=== PATIENT | male | born 1985 | race Caucasian/White ===

== ENCOUNTER 2018-04-06 09:49 | Inpatient (IN) | payer MEDICAID, OTHER ==
--- NOTE | 2018-04-06 11:05 | EDPHY ---
General Time Seen by Provider: 04/06/18 10:06 Narrative: CHIEF COMPLAINT: M1, hallucinations HISTORY OF PRESENT ILLNESS: Patient arrives by EMS and is seen at time of arrival on an M1 hold due to hallucinations. He contacted 911 due to hallucinations and feeling concern for his safety. He says he has been awake for 2-3 days. He has been hearing voices that and telling him these going to tonight. He has felt very anxious from this. He says that he has not felt suicidal. He states that he gets monthly injections of Abilify for this but has not felt well over the past few days. No other associated complaints or modifying factors. PSYCHIATRIC DIAGNOSES: Bipolar disorder, schizophrenia PRIOR PSYCHIATRIC EVALUATIONS: Multiple. M1/DETAINER: [place] [employer] at time of arrival here REVIEW OF SYSTEMS: Ten systems reviewed and are negative unless otherwise noted in the HPI EXAMINATION General Appearance: Alert, no distress Head: normocephalic, atraumatic Eyes: Pupils equal and round, no conjunctival pallor or injection ENT, Mouth: Mucous membranes moist Neck: Normal inspection, supple, non-tender Respiratory: Lungs are clear to auscultation Cardiovascular: Regular rate and rhythm Gastrointestinal: Abdomen is soft and nontender Back: non-tender, no bony abnormalities Neurological: A&O, nonfocal, strength symmetric in all 4 limbs. Skin: Warm and dry, no amish. IV in the right AC. Extremities: Nontender, no pedal edema Psychiatric: Flat affect. Describes auditory hallucinations and paranoid delusions. DIFFERENTIAL DIAGNOSES: Including but not limited to schizophrenia, bipolar disorder, birgit, hypomania, auditory hallucinations, paranoid delusions, psychosis MDM: 10:05 a.m. M1 due to schizophrenia and bipolar disorder with auditory hallucinations with paranoid delusions. Patient denies suicidal ideation at this time. He is thus far cooperative. He reports Abilify monthly injections. Laboratory studies been drawn. Urinalysis will be obtained and proceed with medical clearance for evaluation. 11:20 a.m. Laboratory studies are unremarkable and he is medically cleared for evaluation at this time. 1:30 p.m. Notified by nurse. Patient has been accepted to [facility]. Accepting physician is Dr. Cespedes. Dr. Chen has completed the EMTALA form. SUPERVISION: Patient was independently examined, but I discussed the case with my secondary supervising physician Dr. Chen - Objective Vital Signs: Initial Vital Signs Temperature (C) 98.4 F 04/06/18 09:50 Heart Rate 58 L 04/06/18 09:50 Respiratory Rate 16 04/06/18 09:50 Blood Pressure 144/101 H 04/06/18 09:50 O2 Sat (%) 97 04/06/18 09:50 O2 Delivery Mode Room Air,Oxymizer Allergies/Adverse Reactions: acetaminophen [From Percocet] Allergy (Mild, Verified 04/06/18 10:20) oxycodone HCl [From Percocet] Allergy (Mild, Verified 04/06/18 10:20) Home Medications: Medication Instructions Recorded Non-Formulary 07/20/09 Rumson Carbonate 09/16/09 ZYPREXA 09/16/09 Rumson Carbonate 10/20/09 Abilify Unkn Amt 03/15/13 Cogentin Unk Amt 03/15/13 Klonipin Unkn Amt 03/15/13 Restoril Unkn Amt 03/15/13 Seroquel Unkn Amt 03/15/13 Laboratory Results: Laboratory Results 04/06/18 10:50 04/06/18 10:50 04/06/18 04/06/18 04/06/18 10:50 10:50 10:50 WBC 6.64 10^3/uL 10^3/uL (3.80-9.50) RBC 5.80 10^6/uL 10^6/uL (4.40-6.38) Hgb 17.3 g/dL g/dL (13.7-17.5) Hct 52.8 % H % (40.0-51.0) MCV 91.0 fL fL (81.5-99.8) MCH 29.8 pg pg (27.9-34.1) MCHC 32.8 g/dL g/dL (32.4-36.7) RDW 13.7 % % (11.5-15.2) Plt Count 186 10^3/uL 10^3/uL (150-400) MPV 11.8 fL H fL (8.7-11.7) Neut % (Auto) 71.3 % % (39.3-74.2) Lymph % (Auto) 22.1 % % (15.0-45.0) Tillman % (Auto) 5.9 % % (4.5-13.0) Eos % (Auto) 0.2 % L % (0.6-7.6) Baso % (Auto) 0.2 % L % (0.3-1.7) Nucleat RBC Rel Count 0.0 % % (0.0-0.2) Absolute Neuts (auto) 4.74 10^3/uL 10^3/uL (1.70-6.50) Absolute Lymphs (auto) 1.47 10^3/uL 10^3/uL (1.00-3.00) Absolute Monos (auto) 0.39 10^3/uL 10^3/uL (0.30-0.80) Absolute Eos (auto) 0.01 10^3/uL L 10^3/uL (0.03-0.40) Absolute Basos (auto) 0.01 10^3/uL L 10^3/uL (0.02-0.10) Absolute Nucleated RBC 0.00 10^3/uL 10^3/uL (0-0.01) Immature Gran % 0.3 % % (0.0-1.1) Immature Gran # 0.02 10^3/uL 10^3/uL (0.00-0.10) Sodium 144 mEq/L mEq/L (135-145) Potassium 4.4 mEq/L mEq/L (3.3-5.0) Chloride 107 mEq/L mEq/L (97-110) Carbon Dioxide 27 mEq/l mEq/l (22-31) Anion Gap 10 mEq/L mEq/L (8-16) BUN 9 mg/dL mg/dL (7-23) Creatinine 0.7 mg/dL mg/dL (0.7-1.3) Estimated GFR > 60 Glucose 90 mg/dL mg/dL (70-100) Calcium 10.4 mg/dL mg/dL (8.5-10.4) Urine Opiates Screen NEGATIVE (NEGATIVE) Urine Barbiturates NEGATIVE (NEGATIVE) Ur Phencyclidine Scrn NEGATIVE (NEGATIVE) Ur Amphetamine Screen NEGATIVE (NEGATIVE) U Benzodiazepines Scrn NEGATIVE (NEGATIVE) Urine Cocaine Screen NEGATIVE (NEGATIVE) U Marijuana (THC) Screen NEGATIVE (NEGATIVE) Ethyl Alcohol < 10 mg/dL mg/dL (0-10) Departure - Departure Disposition: [facility] IP Clinical Impression: Bipolar 1 disorder with moderate birgit Schizophrenia Qualifiers: Schizophrenia type: unspecified Qualified Code(s): F20.9 - Schizophrenia, unspecified Condition: Fair Referrals: Patient,NotPresent [Primary Care Provider] - As per Instructions
[2018-04-06 11:15] LABS: PLATELET COUNT 186 10^3/uL (150-400)
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
--- NOTE | 2018-04-06 13:59 | ASMTTCLDSP ---
TLC Discharge Disposition Disposition: Answers: Admit Disposition Notes: Notes: Admit 3[facility]. Discharge Concerns/Recommendations: Notes: In consultation with [facility] ED physician, Jaylen Chen MD and on-call psychiatrist, Tim Le MD, both concurred that pt appears to meet 27-65 criteria requiring psychiatric hospitalization as pt appears to be gravely disabled due to a mental illness condition. Was patient given the Answers: Yes Inpatient Behavioral Health Prohibited Belongings List while in the ED? For inpatient Tim Le MD admission, the following psychiatrist agreed to accept patient for admission to Behavioral Health ([facility]): Type of Hold: Answers: M1/72-hour Hold Hold initiated by: Answers: Police Date Signed: 04/06/2018 01:50 PM Electronically Signed By:Tamir Krause
[2018-04-06] MEDS ORDERED: ACETAMINOPHEN 325 MG TAB PO PRN (16:41)
[2018-04-06] MEDS ORDERED: LORazepam 0.5 MG TAB PO PRN (16:41)
[2018-04-06] MEDS ORDERED: OLANZapine DISINTEGR 10 MG TAB PO PRN (16:41)
[2018-04-06] MEDS ORDERED: NICOTINE POLACRILEX 2 MG GUM B PRN (16:41)
[2018-04-06] MEDS ORDERED: MAGNESIUM HYDROXIDE 30 ML UDCUP PO PRN (16:41)
[2018-04-06] MEDS ORDERED: MAG HYDROX/AL HYDROX/SIMETH 30 ML UDCUP PO PRN (16:41)
--- NOTE | 2018-04-07 09:16 | ASMTBHMTP ---
Master Treatment Plan Date: 04/07/2018 Diagnosis on Admission: SCHIZOAFFECTIVE DISORDER, DEPRESSIVE TYPE 295.70 (F25.1) Expected length of stay: 5-7 Reason for admission: Notes: Pt is a 32 year old male who presented to [facility] on a M1 hold by [employer]. Pt reported to police that his heart was pounding and he was trembling. Pt also reported that he was hearing voices that he was going to tonight. Pt reported that he has panic attacks every week and this has been going on for approx 1 year. Pt also reported that he has AH and that he hears, "instructions" telling him, "to have sex." When asked if he acts on these instructions, pt stated he does. When asked if these sexual encounters are consensual pt stated, " I don't remember." At this point pt stated, "I'm hungry," and then asked to stop the evaluation. Patient's stated presenting problems: Notes: "I had a panic attack and trouble sleeping". Patient's goals for treatment: Notes: "Be able to sleep at least 6 hours a night". Patient's strengths: Notes: "I'm a soothing person". Identify supports outside of hospital: Notes: "I don't have any support" Discharge criteria: Notes: Attend groups, sleep 6-8 hours, eat 3 meals a day. Initial disposition plan/considerations: Notes: Stabilize on medications. Master Treatment Plan Required Signatures Psychiatrist signature: Answers: Psychiatrist: RN on-shift signature: Answers: RN: Patient signature: Answers: Patient: Date Signed: 04/07/2018 09:15 AM Electronically Signed By:Carol Oliver
--- NOTE | 2018-04-07 13:53 | ASMTBHDC ---
Notes Note: Notes: CC and [employer] met with Christal riojas's [facility] therapist. Per Christal tristan. had been doing fairly well until yesterday. He has been using [facility] and can return there if they have a bed at the time of discharge. Christal reported that tristan. is on a halfway cert and court ordered meds. CC and [employer] requested a transfer of cert. Christal reported that tristan. has multiple stressors that resulted in increased anxiety. She reported that he is presenting fairly close to his baseline. Tristan. is on probation for an assault charge. Date Signed: 04/07/2018 01:52 PM Electronically Signed By:Carol Oliver
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
[2018-04-07] MEDS: ALBUTEROL 60 PUFFS/8 GM MDI IH SCH ×3 (15:53→23:58)
[2018-04-08] MEDS: ALBUTEROL 60 PUFFS/8 GM MDI IH SCH ×5 (03:15→20:24)
--- NOTE | 2018-04-08 08:15 | SOAPPROG ---
SOAP Progress Note Assessment/Plan: Assessment: Schizoaffective disorder, bipolar type. Improvement noted. (see subjective/ objective note). Patient is not safe to discharge at this time as patient continues to exhibit signs of depression, and express depression and anxiety symptoms. Patient requires continued inpatient care because of current depression, and requires inpatient level of care to stabilize. Patient could benefit from continued inpatient hospitalization for crisis stabilization, safety, and medication evaluation. Plan: (1) Psychotropic medications: After reviewing options, risks, and benefits patient agrees to continue current medications. No medication changes at this time as more time is needed to determine ongoing tolerability and efficacy. Plan is to continue to observe patient for response and side effects from medications, and ongoing monitoring and evaluation. (2) Review with patient informed consent and recommendations for psychotropic medication treatment listed below (3) Labs: no additional labs at this time (4) Therapy: continue milieu and group therapy (5) Further investigation including gathering information from patients relatives and review of past case records to inform treatment plan. (6) Safety/Wellness plan and follow-up outpatient appointments to be established prior to discharge. Next steps are for patient to meet with chiropractic care to plan a safe discharge plan and establish outpatient services for ongoing treatment. (7) Confer with inpatient treatment team regarding treatment plan. (8) Legal status: [facility] and [facility] (9) Consider discharge on Thursday if patient is in stable condition, safe, and has a safe discharge plan. (10) Substance abuse interventions: alcohol/binge drinking; recommend and referral to OP treatment and reinforce education and brief intervention above. PSYCHOTROPIC MEDICATION TREATMENT INFORMED CONSENT and RECOMMENDATIONS: Review nature of condition, diagnosis, and prognosis. Review nature and purpose of psychotropic medication treatment. Review type of psychotropic medications being ordered. Review risk and benefits of psychotropic medication treatment. Review probable length of time patient will need to take medications. Review risk and benefits of not undergoing psychotropic medication treatment. Review alternative treatments to psychotropic medications. Review psychotropic medications contraindications, drug-drug interactions, side effects, and importance of reporting any side effects to a psychiatric provider or nurse during inpatient hospitalization, and upon discharge to patients psychiatric outpatient provider, primary care provider, or other health rn progressive care unit. Review importance of asking a nurse, psychiatric provider, or primary care provider any questions or problems concerning the psychotropic medications. Verify patient understands the information that has been provided, and understands, accepts, and agrees to psychotropic medications. Review patients safety plan and importance of patient to report to staff while hospitalized if patient is ever a danger to self/others, or unable to care for self, and upon discharge, the importance for patient to contact [facility] or [facility], or go to the nearest emergency room, if patient is ever a danger to self/others, or unable to care for self. Recommend that upon discharge patient establish medication management treatment with a psychiatric provider, establishes routine therapy appointments, and follow-up with primary care provider. Verify patient understands and agrees to these recommendations. 04/08/18 08:16 Subjective: Following up with patient for evaluation of psychosis and safety. Patient reports, "Feeling okay, depressed." Patient expresses the following psychiatric symptoms mild-moderate depression and anxiety (5/10). Patient denies SI, denies hallucinations. Patient reports taking medications as prescribed, and describes response to medications as okay. Patient does not report undesirable side effects from the medications. Patient agrees to continue current medications. Patient reports appetite as good, and reports eating all meals. Patient describes getting 8 hours of sleep. Objective: Vital Signs Temp Pulse Resp BP Pulse Ox 36.6 C 55 L 14 109/65 97 04/08/18 06:00 04/08/18 06:00 04/08/18 06:00 04/08/18 06:00 04/08/18 06:00 NURSING REPORT: Consulted with nursing for update on patients progress in treatment. Nurses report patient is engaged in treatment, is not attending groups and has been withdrawn to room, slept 8 hours, expresses the following psychiatric symptoms: depression and anxiety, exhibits the following psychiatric symptoms: depression and anxiety; flat affect; withdrawn to room; is eating all meals, is taking medications as prescribed with no report of side effects, with no s/s of EPS/akathisia, and denies SI/HI, denies A/V hallucinations, denies delusions. AUDIT SENIOR ASSOCIATE UPDATE: currently working with ACT team from [facility] on disposition and psychiatric services. SUBSTANCE ABUSE BRIEF INTERVENTION: Brief intervention regarding the risks of alcohol abuse is provided to patient with goal to reduce the risk of harm that could result from the continued use of alcohol, with the general aim to investigate the problem, raise awareness of problem, develop a solution with the patient, recommend a specific change or activity, and motivate the patient toward change. Assess substance abuse behavior and give supportive advice about harm reduction, recommend a reduction in hazardous/at-risk consumption patterns, and facilitate referrals for additional specialized treatment with career services director. Intermediate goal is for the patient to quit use and attend a AA meeting. Intervention focus on intermediate goals to allow for more immediate success in the treatment process to keep the patient motivated. Review following with patient: Alcohol/Binge Drinking risks: short-term: injuries, violence, alcohol poisoning, risky sexual behaviors. Long-term: high blood pressure, stroke, liver disease, digestive problems, cancer, learning and memory problems, depression and anxiety, social problems, and alcohol dependence. MSE: The patient is a well-nourished male looking stated chronological age. Attire is appropriate and dress is casual, and is neat and clean. Grooming status is appropriate and clean. Ambulation is independent. Gait is normal and coordinated. Posture is normal and relaxed. Eye contact is appropriate, and adequate. Motor activity is appropriate with purposeful, organized, coordinated movements; with no involuntary movements. Attitude is cooperative and friendly. Patient appears attentive and relates well to this interviewer. Language production is spontaneous. R/R/V normal. Articulation is clear. Patient reports mood as depressed with congruent affect. Patients thought process is linear and logical, with no loose associations, tangential thought, thought blocking, concrete thinking, or any other signs of formal thought disorder. Associations are connected. Patient does not report suicidal thoughts, ideas, or plans. Patient denies homicidal thoughts, ideas, or plans. Patient denies auditory, visual hallucinations. Patient denies delusions. Patient does not appear to be attending to internal stimuli. Patients attention and concentration are adequate. Patient is oriented to person, place , time. Patients insight is poor. Patients judgment is poor. - Time Spent With Patient Time Spent With Patient: 30 minutes, met with patient individually and with patient and treatment team. - Pending Discharge Pending Discharge Within 24 Hours: Yes Pending Discharge Within 48 Hours: No Pending Discharge Date: 04/09/18 Pending Discharge Time: 11:00 ICD10 Worksheet Patient Problems: Problems Problem Status Onset Adjustment disorder with anxiety Acute Nicotine dependence Acute Schizoaffective disorder, bipolar type Acute
--- NOTE | 2018-04-08 14:42 | PDMN ---
Medical Necessity Medical necessity: Pt meets inpt criteria per MD order and [id number], Schizophrenia Spectrum Disorders, Adult: Inpatient Care, 6 days. Est LOS>2MN for management of schizoaffective disorder and exacerbation of symptoms, admitted involuntarily on M1 Hold due to being gravely disabled due to mental illness and is hospitalized for safety, crisis stabilization, and medication evaluation.
[2018-04-09] MEDS: ALBUTEROL 60 PUFFS/8 GM MDI IH SCH ×3 (03:10→09:19)
--- NOTE | 2018-04-09 07:54 | BDS ---
[f rep st] BEHAVIORAL HEALTH DISCHARGE SUMMARY REASON FOR ADMISSION: From the ED note dated 04/06/2018, patient arrived to the emergency department by EMS and was seen at the time of his arrival on an M1 hold due to hallucinations. The patient had contacted 911 due to hallucinations and feeling concerned for his safety. The patient reported he has not slept for 2-3 days. The patient reported hearing voices telling him he was going to . The patient reported feeling very anxious due to this. The patient stated in the ED that he did not feel suicidal. The patient reported getting monthly injections of Abilify and reported not feeling well over the past few days. The patient had no other associated complaints or modifying factors. The patient was admitted involuntarily on an M1 hold due to being gravely disabled due to a mental illness. The patient was admitted for safety crisis stabilization and medication management. ADMITTING DIAGNOSES: Schizoaffective disorder, bipolar type. Adjustment disorder with anxiety, nicotine dependence. ADMISSION PHYSICAL EXAM: The patient was seen on 04/07/2018, by Dr. Bedolla for an Internal Medicine consultation for medical clearance for inpatient behavioral health stay. Dr. Bedolla reported that he saw no medical contraindications to the patient's continued stay on the inpatient behavioral health unit or to any psychiatric medications or procedures. For further details, please refer to Dr. Bedolla's internal medicine consultation dated 04/07. ADMISSION LABS: From the emergency department, CBC revealed slight hemoconcentration with hematocrit of 52.8, the upper limit of normal being 51. Hemoglobin was normal at 17.3. CBC was otherwise unremarkable. Serum chemistry revealed normal renal function and electrolytes. Hemoglobin A1c was 5.3. Liver function tests were normal. Toxicology screen in the serum was negative for ethyl alcohol and the urine was negative for any substances of abuse. Fasting lipid panel from 04/07/2018 within normal limits. TSH from , was 1.520. MAJOR PROCEDURES OR TESTS: None. HOSPITAL COURSE: The most prominent symptoms and behaviors while the patient was here was moderate anxiety regarding patient's disposition. The patient denied auditory hallucinations at time of admission on the unit and reported just feeling anxious regarding recently losing his housing and patient reported when he discovered that he was going to lose his housing, he immediately panicked and that is when he called 911. Treatment modalities utilized during hospitalization were milieu and group therapy. The patient receives Abilify Maintena 400 mg IM q. 21 days and patient's last administration of this medication was on 03/24/2018. Therefore, patient did not require an IM maintenance dose during this hospitalization. The patient will follow up with his outpatient provider at [facility] for ongoing treatment. The patient did report good response from Abilify Maintena 400 mg IM q. 21 days and patient's providers from [facility] also reported that patient has responded well on this medication. The patient has improved considerably with no signs of psychiatric symptoms and no psychiatric symptoms expressed at discharge. The patient reports he has improved since admission, states to be in stable condition, feels safe to discharge, and he contracts for safety. Patient's response to treatment was good. There were no adverse or unexpected results of treatment. The patient was safe throughout his stay, active in his treatment and was appropriate with staff and other patients. The patient met with this A CLASS LINEMAN and the entire treatment team including charge nurse, psychiatrist , lead care manager and therapist, prior to his discharge to discuss his treatment and discharge plan. The patient reported that his main concern was housing. The lead care manager worked with the patient's outpatient provider and case management rn at [facility] and housing has been established for the patient. The treatment team consensus is the patient is in stable condition and is safe to discharge today. CONDITION AT DISCHARGE: Patient is in stable condition and is no longer a danger to self or others, and is not gravely disabled due to mental illness. Patient is no longer in need of inpatient level of care, and can be safely and effectively treated within the community. The patients level of risk at time of discharge is low based on the risk assessment below following this discharge summary. MSE: The patient is casually dressed and with good hygiene, and looks stated age. Patient is sitting, posture is upright, and position is relaxed. Patient appears awake, alert, and responds appropriately and reasonably during interview. Patient is engaged, relates well to interviewer, and emotional facial expression is appropriate to situation and changes appropriately with topic. Patient is cooperative, makes comfortable eye contact, and movements are voluntary, deliberate, coordinated, and smooth and even with no inappropriate movements. Patient makes laryngeal sounds effortlessly and shares conversation appropriately; pace of conversation is appropriate, and stream of talking is fluent; articulation is clear and understandable; word choice is effortless and appropriate for education level; completes sentences, occasionally pausing to think; rate and volume are appropriate for interview and setting. Patient reports mood as euthymic. Patients affect is stable with full variable range, congruent with mood, and appropriate to speech and circumstances. Patient has linear and logical thinking, with no loose associations, tangential thought, thought blocking, concrete thinking, or any other signs of formal thought disorder. Patient denies suicidal and homicidal ideation, and denies hallucinations and delusions. Patient appears to be a reliable historian with sound judgement and good insight into current condition. Patient has no apparent dysfunction in recent or remote memory noted , and no evidence of gross cognitive dysfunction noted at any point during the interview. DISCHARGE DIAGNOSES: 1. Schizoaffective disorder, bipolar type. 2. Adjustment disorder with anxiety. 3. Nicotine dependence. CURRENT MEDICATIONS: Abilify Maintena 400 mg IM q. 21 days, last administered 03/24/2018. DISPOSITION: The patient left hospital today independently and voluntarily with plans to stay at placement that has been established by [facility]. FOLLOWUP: sales and events coordinator reports the appropriate outpatient follow-up services have been established and outpatient appointments have been scheduled. The patient received written instructions with times and dates of outpatient follow-up appointments. The following follow-up recommendations were provided to the patient at discharge: Continue psychotropic medications as prescribed and attend appointments as scheduled. Report any side effects to a psychiatric outpatient provider, a primary care provider, or other health care specialist. Address any questions or problems concerning the psychotropic medications with a psychiatric outpatient provider, a primary care provider, or other health care specialist. Contact [facility] or [facility], or go to the nearest emergency room, if you are ever a danger to yourself/others, or unable to care for yourself. As soon as possible, establish a routine medication management treatment with a psychiatric provider, establish routine therapy appointments, and follow-up with a primary care provider. SUBSTANCE ABUSE BRIEF INTERVENTION: Brief intervention regarding the risks of alcohol abuse is provided to patient with goal to reduce the risk of harm that could result from the continued use of alcohol, with the general aim to investigate the problem, raise awareness of problem, develop a solution with the patient, recommend a specific change or activity, and motivate the patient toward change. Assess substance abuse behavior and give supportive advice about harm reduction, recommend a reduction in hazardous/at-risk consumption patterns, and facilitate referrals for additional specialized treatment with lead care manager. Intermediate goal is for the patient to quit use and attend a AA meeting. Intervention focus on intermediate goals to allow for more immediate success in the treatment process to keep the patient motivated. Review following with patient: Alcohol/Binge Drinking risks: short-term: injuries, violence, alcohol poisoning, risky sexual behaviors. Long-term: high blood pressure, stroke, liver disease, digestive problems, cancer, learning and memory problems, depression and anxiety, social problems, and alcohol dependence. LEGAL COURSE: The patient was admitted on an M1 hold for involuntary inpatient psychiatric hospitalization. The patient discharged today independently and voluntarily. ATTITUDE AT TIME OF DISCHARGE: Patient reports, "I am ready to discharge." The patients attitude was positive at time of discharge, and patient reports looking forward to discharging today. The patient reports he feels safe to discharge, is no longer a danger to himself or others, is in stable condition, and contracts for safety. Patient states he will continue medications as prescribed, and establish medication management treatment with an outpatient provider after discharge. Patient reports he understands the information that has been provided to him, and he understands, accepts, and agrees to psychotropic medications. Patient describes internal protective factors as the coping skills he has learned while hospitalized here, and he plans to continue to practice these coping skills after discharge. Patient reports external protective factors as love for food and music. Patient describes looking forward to nandini after discharge. Patient describes future plans as getting housing. Patient reports he has completed Safety/Wellness Plan and has reviewed Safety/Wellness Plan with his nurse. Patient states his family and friends look forward to him discharging. LABS AND STUDIES: There were no pending labs or studies at time of discharge. ADVANCE DIRECTIVES: There were no advance directives on file, and the patient was full code during hospitalization. The following psychotropic medication treatment informed consent and recommendations were provided to the patient at time of discharge. Patient reports he understands, accepts, and agrees to the information that has been provided. PSYCHOTROPIC MEDICATION TREATMENT INFORMED CONSENT and RECOMMENDATIONS: Review nature of condition, diagnosis, and prognosis. Review nature and purpose of psychotropic medication treatment. Review type of psychotropic medications being prescribed. Review risk and benefits of psychotropic medication treatment. Review probable length of time will need to take medications. Review risk and benefits of not undergoing psychotropic medication treatment. Review alternative treatments to psychotropic medications. Review psychotropic medications contraindications, side effects, and importance of reporting any side effects to a psychiatric provider, primary care provider, or other health care specialist. Review importance of her asking a psychiatric provider or primary care provider any questions or problems concerning the psychotropic medications. Review safety plan and the importance to contact [facility] or [facility] , or go to the nearest emergency room, if ever a danger to yourself/others, or unable to care for yourself. Recommend upon discharge to establish routine medication management treatment with a psychiatric provider, establish routine therapy appointments, and follow-up with a primary care provider. Verify patient understands, accepts, and agrees to the information that has been provided. SUICIDE ASSESSMENT FIVE-STEP EVALUATION AND TRIAGE (1) RISK FACTORS: (a) Suicidal behavior: reports history of attempt 7 years ago by cutting wrist (b) Current/past psychiatric disorders: schizoaffective disorder, bipolar type (c) Phelps symptoms: no psychiatric symptoms expressed or exhibited at time of discharge (d) Family history: uncle completed suicide (e) Precipitants/Stressors/Interpersonal: none (f) Change in treatment: discharge from psychiatric hospital (g) Access to firearms: none (2) PROTECTIVE FACTORS: (a) Internal: coping skills learned while hospitalized (b) External: love for food and music; future goals and plans (3) SUICIDAL INQUIRY: (a) Ideation: none (b) Plan: none (c) Behaviors: none; patient was safe throughout stay with no suicidal or parasuicidal behaviors (d) Intent: none (4) RISK LEVEL: Low: modifiable risk factors, strong protective factors; no suicidal or self-injurious ideation. Intervention: treatment plan to reduce symptoms including medications and therapy, provided emergency/crisis numbers, and established follow-up plan. /[id number]/MODL MTDD
--- NOTE | 2018-04-09 08:15 | ASMTCMCOM ---
CM Note CM Note Notes: CC met with ct. ahead of his dischahrge. Ct. appears somewhat anxious. He requested that we give him socks, sweater and his inhailer which will be given at time of discharge. Plan is to have him take the bus to the long term. PPWR for long term bed will be given to ct. at time of d/c. CC left a VM for ct.'s therapist Christal asking for a f/u appointment. Date Signed: 04/09/2018 08:14 AM Electronically Signed By:Carol Oliver
[2018-04-09 08:22] VITALS: BP 109/60
[2018-04-14] MEDS ORDERED: ARIPIPRAZOLE (ABILIFY MAINTENA) 400 MG VIAL IM ONE (15:02)
== END 2018-04-09 09:40 | disposition home or self-care (01) | DRG 885 ==
LOC: EDUNIT# → BBEH 16:25
PROVIDERS: ADMIT Psychiatry & Neurology Psychiatry; ATTEND Psychiatry & Neurology Psychiatry
DX: F25.0 Schizoaffective disorder, bipolar type (principal); F15.151 Other stimulant abuse with stimulant-induced psychotic disorder with hallucinations; F10.99 Alcohol use, unspecified with unspecified alcohol-induced disorder; F41.0 Panic disorder [episodic paroxysmal anxiety]; F17.210 Nicotine dependence, cigarettes, uncomplicated; R00.2 Palpitations; J45.909 Unspecified asthma, uncomplicated; Z59.0 Homelessness
CPT/HCPCS: 80305; G0480

== ENCOUNTER 2018-04-11 11:25 | Emergency (ER) | payer MEDICAID ==
--- NOTE | 2018-04-11 12:03 | EDPHY ---
General Time Seen by Provider: 04/11/18 11:57 Narrative: CHIEF COMPLAINT: Left foot pain, injury 1 week ago HISTORY OF PRESENT ILLNESS: Patient presents with complaints of left foot pain after an injury in this 1 week ago. He says he was walking when he accidentally bent the forward. He describes a plantar flexion injury. He has pain over the 2nd metatarsal distally near the MTP but not including it. No numbness or tingling. No weakness. No pain in the left calcaneus, ankle, hammer or knee. He did not fall or strike himself anywhere. He has mild pain when walking that improved at rest. Does not radiate. Has not felt febrile, chills or ill. No other associated complaints or modifying factors. ESTABLISHED ORTHOPEDIST: None REVIEW OF SYSTEMS: Ten systems reviewed and are negative unless otherwise noted in the HPI PAST MEDICAL HISTORY: Schizophrenia, anxiety PAST SURGICAL HISTORY: Previous orthopedic surgeries. No recent surgeries SOCIAL HISTORY: Recently discharged from inpatient psychiatric care. Currently living in a half-way. FAMILY HISTORY: Noncontributory EXAMINATION General Appearance: Alert, no distress HEENT: Normocephalic. Atraumatic. Pupils equal round reactive with EOM symmetric and painless Neck: Supple nontender. No meningismus Cardiovascular: Tachycardic rate. Regular rhythm. Good signs of perfusion distally No murmur Symmetric DP PT pulses 2+. Brisk cap refill in the toes left foot. Respiratory: Lungs are clear in all patricia. No wheezing, rhonchi or crackles Abdomen: Soft in all quadrants. No tympany rigidity guarding. Bowel sounds are present all 4 quadrants. No CVA tenderness. Neurological: A&O, light sensory symmetric on the feet and calves. Ankle and great toe strength is symmetric at 5/5. Skin: Warm and dry, no rash. No cellulitis. There is superficial abrasion to the dorsum of the left foot with eschar but no fluctuance or cellulitis. Extremities: Tenderness of the left midfoot over the 2nd metatarsal. There is no tenderness of the left calcaneus with firm palpation. No deformity of the foot or ankle. No tenderness of the left ankle. Range of motion of the ankles and knees symmetric without difficulty. Psychiatric: Mood and affect normal DIFFERENTIAL DIAGNOSES: Including but not limited to sprain, strain, fracture, Lisfranc injury, sepsis, cellulitis, SIRS MDM: 12:03 p.m. Pain in the left foot with injury 1 week ago. He has no signs of cellulitis or infection to the foot but does have tenderness over the 2nd metatarsal. There is a superficial abrasion with eschar but no abscess. The left calf, knee and ankle are unremarkable. He is slightly tachycardic and has a borderline temperature but does not technically meet SIRS criteria. I have ordered laboratory studies and IV fluid as well as pain medication and will re- evaluate. I have also discussed with Dr. Chen. 12:[address] Chen is also evaluated this patient and does feel we need to further evaluated for the possibility of sepsis. He has ordered blood cultures and lactic acid, urinalysis and chest x-ray. He is receiving IV fluid and will continue to monitor. 1:00 p.m. Patient does have leukocytosis and mild elevation of total bilirubin, thus I have ordered a liver panel. Chest x-ray unremarkable. 2:30 p.m. Remainder of laboratory studies are unremarkable including a negative urinalysis. Vital signs have completely normalized with only 1 L IV fluid and ibuprofen by mouth. We discussed the likelihood of a simple foot sprain, but for the need for orthopedic follow-up as well. He will be discharged home weight-bearing as tolerated with a walking boot. We discuss ice, elevation anti -inflammatories. We discussed ED precautions for any worsening pain, numbness, tingling, weakness, chest pain, cough, fever, shortness of breath. Discharged home stable condition. SUPERVISION: Patient was evaluated and examined in conjunction with my secondary supervising physician as documented. We have both examined the patient. - Diagnostics Imaging Results: Imaging Impressions Foot X-Ray 04/11/18 12:04 Impression: No evidence for acute osseous abnormality left foot at the region of concern at the metatarsals. There is progressive degenerative change of the tibiotalar joint and a subcortical cyst in the talar dome. Postsurgical changes of open reduction and internal fixation of a distal tibial fracture and syndesmotic screw, similar in appearance. Chest X-Ray 04/11/18 12:37 IMPRESSION: Normal chest x-ray. - History Smoking Status: Current every day smoker - Objective Vital Signs: Initial Vital Signs Temperature (C) 100.4 F 04/11/18 11:25 Heart Rate 112 H 04/11/18 11:25 Respiratory Rate 18 04/11/18 11:25 Blood Pressure 122/74 H 04/11/18 11:25 O2 Sat (%) 94 04/11/18 11:25 O2 Delivery Mode Room Air Allergies/Adverse Reactions: acetaminophen [From Percocet] Allergy (Mild, Verified 04/11/18 11:26) oxycodone HCl [From Percocet] Allergy (Mild, Verified 04/11/18 11:26) Home Medications: Medication Instructions Recorded ARIPiprazole [Abilify Maintena] 400 mg IM Q21D 04/07/18 Laboratory Results: Laboratory Results 04/11/18 12:20 04/11/18 12:20 04/11/18 04/11/18 04/11/18 14:12 13:05 12:20 WBC RBC Hgb Hct MCV MCH MCHC RDW Plt Count MPV Neut % (Auto) Lymph % (Auto) [place] % (Auto) Eos % (Auto) Baso % (Auto) Nucleat RBC Rel Count Absolute Neuts (auto) Absolute Lymphs (auto) Absolute Monos (auto) Absolute Eos (auto) Absolute Basos (auto) Absolute Nucleated RBC Immature Gran % Immature Gran # PT INR APTT VBG Lactic Acid 0.8 mmol/L mmol/L (0.7-2.1) Sodium Potassium Chloride Carbon Dioxide Anion Gap BUN Creatinine Estimated GFR Glucose Calcium Total Bilirubin 1.7 mg/dL H mg/dL (0.1-1.4) Conjugated Bilirubin 0.3 mg/dL mg/dL (0.0-0.5) Unconjugated Bilirubin 1.4 mg/dL H mg/dL (0.0-1.1) AST 43 IU/L IU/L (17-59) ALT 40 IU/L IU/L (21-72) Alkaline Phosphatase 85 IU/L IU/L (38-126) Total Protein 7.3 g/dL g/dL (6.3-8.2) Albumin 4.3 g/dL g/dL (3.5-5.0) Urine Color YELLOW Urine Appearance CLEAR Urine pH 6.0 (5.0-7.5) Ur Specific [place] 1.012 (1.002-1.030) Urine Protein NEGATIVE (NEGATIVE) Urine Ketones 1+ H (NEGATIVE) Urine Blood NEGATIVE (NEGATIVE) Urine Nitrate NEGATIVE (NEGATIVE) Urine Bilirubin NEGATIVE (NEGATIVE) Urine Urobilinogen 4.0 EU H EU (0.2-1.0) Ur Leukocyte Esterase NEGATIVE (NEGATIVE) Urine Glucose NEGATIVE (NEGATIVE) 04/11/18 04/11/18 04/11/18 12:20 12:20 12:20 WBC RBC Hgb Hct MCV MCH MCHC RDW Plt Count MPV Neut % (Auto) Lymph % (Auto) [place] % (Auto) Eos % (Auto) Baso % (Auto) Nucleat RBC Rel Count Absolute Neuts (auto) Absolute Lymphs (auto) Absolute Monos (auto) Absolute Eos (auto) Absolute Basos (auto) Absolute Nucleated RBC Immature Gran % Immature Gran # PT 15.4 SEC H SEC (12.0-15.0) INR 1.20 H (0.83-1.16) APTT 30.3 SEC SEC (23.0-38.0) VBG Lactic Acid Sodium 140 mEq/L mEq/L (135-145) Potassium 4.7 mEq/L mEq/L (3.3-5.0) Chloride 105 mEq/L mEq/L (97-110) Carbon Dioxide 23 mEq/l mEq/l (22-31) Anion Gap 12 mEq/L mEq/L (8-16) BUN 14 mg/dL mg/dL (7-23) Creatinine 0.9 mg/dL mg/dL (0.7-1.3) Estimated GFR > 60 Glucose 87 mg/dL mg/dL (70-100) Calcium 9.5 mg/dL mg/dL (8.5-10.4) Total Bilirubin 1.7 mg/dL H mg/dL (0.1-1.4) Conjugated Bilirubin Unconjugated Bilirubin AST ALT Alkaline Phosphatase Total Protein Albumin Urine Color Urine Appearance Urine pH Ur Specific [place] Urine Protein Urine Ketones Urine Blood Urine Nitrate Urine Bilirubin Urine Urobilinogen Ur Leukocyte Esterase Urine Glucose 04/11/18 12:20 WBC 14.37 10^3/uL H 10^3/uL (3.80-9.50) RBC 5.21 10^6/uL 10^6/uL (4.40-6.38) Hgb 15.7 g/dL g/dL (13.7-17.5) Hct 47.1 % % (40.0-51.0) MCV 90.4 fL fL (81.5-99.8) MCH 30.1 pg pg (27.9-34.1) MCHC 33.3 g/dL g/dL (32.4-36.7) RDW 13.2 % % (11.5-15.2) Plt Count 129 10^3/uL L 10^3/uL (150-400) MPV 11.3 fL fL (8.7-11.7) Neut % (Auto) 87.1 % H % (39.3-74.2) Lymph % (Auto) 6.0 % L % (15.0-45.0) [place] % (Auto) 6.3 % % (4.5-13.0) Eos % (Auto) 0.0 % L % (0.6-7.6) Baso % (Auto) 0.1 % L % (0.3-1.7) Nucleat RBC Rel Count 0.0 % % (0.0-0.2) Absolute Neuts (auto) 12.53 10^3/uL H 10^3/uL (1.70-6.50) Absolute Lymphs (auto) 0.86 10^3/uL L 10^3/uL (1.00-3.00) Absolute Monos (auto) 0.90 10^3/uL H 10^3/uL (0.30-0.80) Absolute Eos (auto) 0.00 10^3/uL L 10^3/uL (0.03-0.40) Absolute Basos (auto) 0.01 10^3/uL L 10^3/uL (0.02-0.10) Absolute Nucleated RBC 0.00 10^3/uL 10^3/uL (0-0.01) Immature Gran % 0.5 % % (0.0-1.1) Immature Gran # 0.07 10^3/uL 10^3/uL (0.00-0.10) PT INR APTT VBG Lactic Acid Sodium Potassium Chloride Carbon Dioxide Anion Gap BUN Creatinine Estimated GFR Glucose Calcium Total Bilirubin Conjugated Bilirubin Unconjugated Bilirubin AST ALT Alkaline Phosphatase Total Protein Albumin Urine Color Urine Appearance Urine pH Ur Specific [place] Urine Protein Urine Ketones Urine Blood Urine Nitrate Urine Bilirubin Urine Urobilinogen Ur Leukocyte Esterase Urine Glucose Medications Given: Discontinued Medications Sodium Chloride (Ns) 1,000 mls @ 0 mls/hr IV EDNOW ONE; Wide Open PRN Reason: Protocol Stop: 04/11/18 12:05 Last Admin: 04/11/18 12:16 Dose: 1,000 mls Sodium Chloride (Ns) 1,000 mls @ 0 mls/hr IV EDNOW ONE; Wide Open PRN Reason: Protocol Stop: 04/11/18 13:06 Last Admin: 04/11/18 13:30 Dose: 1,000 mls Ibuprofen (Motrin) 600 mg PO EDNOW ONE Stop: 04/11/18 12:05 Last Admin: 04/11/18 12:14 Dose: 600 mg Departure - Departure Disposition: Home, Routine, Self-Care Clinical Impression: Sprain of foot, left Qualifiers: Encounter type: initial encounter Qualified Code(s): S93.602A - Unspecified sprain of left foot, initial encounter Condition: Good Instructions: Foot Sprain (ED) Additional Instructions: 1. Ice elevation often 2. Contact Orthopedics for definitive care 3. Return here for any fever, chest pain, cough, shortness of breath or urinary complaints Referrals: Cruz Ortega MD [Medical Doctor] - As per Instructions
[2018-04-11] MEDS ORDERED: NS 1,000 ML IV ONE ×2 (12:04→13:05)
[2018-04-11] MEDS ORDERED: IBUPROFEN 600 MG TAB PO ONE (12:04)
[2018-04-11 12:43] LABS: PLATELET COUNT 129 10^3/uL (150-400)
[2018-04-11 12:56] LABS: INR 1.2 (0.83-1.16); PROTIME(PATIENT) 15.4 SEC (12.0-15.0)
[2018-04-11 13:30] VITALS: BP 111/60
== END 2018-04-11 15:04 | disposition home or self-care (01) ==
DX: S93.692A Other sprain of left foot, initial encounter (principal); F17.200 Nicotine dependence, unspecified, uncomplicated; X50.9XXA Other and unspecified overexertion or strenuous movements or postures, initial encounter; Y93.01 Activity, walking, marching and hiking; F20.9 Schizophrenia, unspecified; F41.9 Anxiety disorder, unspecified
CPT/HCPCS: L4386